=== PATIENT | male | born 1985 | race Caucasian/White ===

== ENCOUNTER 2018-02-08 11:17 | Inpatient (IN) ==
--- NOTE | 2018-02-08 11:31 | Emergency Department Note ---
Disposition Clinical Impression: Acute psychosis, Homicidal ideations Disposition: Admitted As Inpatient Condition: Fair General Adult HPI - General Chief complaint: ED Psychiatric Symptoms Stated complaint: Psych Time Seen by Provider: 02/08/18 11:25 - History of Present Illness Pain Scale: 8 - Related Data Home Medications Medication Instructions Recorded Confirmed Aspirin [Lo-Dose Aspirin EC] 81 mg PO DAILY 02/08/18 02/08/18 Biotin 10,000 mcg PO DAILY 02/08/18 02/08/18 FLUoxetine HCl [PROzac] 20 mg PO DAILY 02/08/18 02/08/18 Glycopyrrolate [Robinul] 2 mg PO BID 02/08/18 02/08/18 Methocarbamol [Robaxin] 500 mg PO Q8HR 02/08/18 02/08/18 hydrOXYzine HCl [Hydroxyzine HCl] 25 mg PO HS 02/08/18 02/08/18 Allergies Allergy/AdvReac Type Severity Reaction Status Date / Time No Known Allergies Allergy Verified 02/08/18 11:24 Past Medical History - Past Medical History Medical history: Reports: no medical history - Social History Smoking Status: Never smoker Smokeless Tobacco Status: No Alcohol use: Reports: none Course Vital Signs Temperature 98.8 F 02/08/18 11:22 Pulse Rate 119 02/08/18 11:22 Respiratory Rate 18 02/08/18 11:22 Blood Pressure 169/95 02/08/18 11:22 O2 Sat by Pulse Oximetry 96 02/08/18 11:22 Temperature 97.8 F 02/08/18 20:24 Pulse Rate 93 02/08/18 20:24 Respiratory Rate 18 02/08/18 20:24 Blood Pressure 164/100 02/08/18 20:24 O2 Sat by Pulse Oximetry 96 02/08/18 11:28 Oxygen Delivery Oxygen Delivery Room Air Medical Decision Making - Lab Data Result diagrams: 02/08/18 11:59 02/08/18 11:59 Lab Results 02/08/18 02/08/18 02/08/18 Range/Units 11:45 11:59 11:59 WBC 12.9 H (4.3-11.1) K/mcL RBC 5.38 (4.19-5.50) M/mcL Hgb 14.2 (12.9-16.9) g/dL Hct 44.2 (37.5-50.1) % MCV 82.2 L (83.0-100.0) fL MCH 26.4 L (28.0-33.3) pg MCHC 32.1 (31.6-35.5) g/dL RDW 14.3 (11.5-14.5) % Plt Count 339 (140-400) K/mcL MPV 11.2 (9.4-12.4) fL Immature Gran % 0.2 (0-4) % Seg Neutrophils % 62.2 % Lymphocytes % 26.0 % Monocytes % 9.9 % Eosinophils % 0.8 % Basophils % 0.9 % Neutrophils # 8.0 (1.6-8.9) K/mcL Lymphocytes # 3.4 (0.6-4.6) K/mcL Monocytes # 1.3 (0.0-1.3) K/mcL Eosinophils # 0.1 (0.0-0.6) K/mcL Basophils # 0.1 (0.0-0.2) K/mcL Sodium 141 (136-145) mEq/L Potassium 3.9 (3.5-5.1) mEq/L Chloride 105 (98-107) mEq/L Carbon Dioxide 27 (23-29) mEq/L BUN 18 (6-20) mg/dL Creatinine 1.14 (0.70-1.30) mg/dL Est GFR ( Amer) > 60 (> 60) Est GFR (Non-Af Amer) > 60 (> 60) BUN/Creatinine Ratio 16 (6-26) Glucose 120 H (70-105) mg/dL Calculated Osmolality 295 (280-300) Calcium 9.9 (8.6-10.3) mg/dL Total Bilirubin 0.4 (0.3-1.0) mg/dL Direct Bilirubin 0.1 (0.0-0.2) mg/dL Indirect Bilirubin 0.3 (0.0-1.2) mg/dL AST 34 (13-39) Units/L ALT 25 (7-52) Units/L Alkaline Phosphatase 113 H (34-104) Units/L Serum Total Protein 7.8 (6.4-8.9) g/dL Albumin 4.8 (3.5-5.7) g/dL Globulin 3.0 (2.4-3.5) g/dL Albumin/Globulin Ratio 1.6 (1.1-2.2) Salicylates < 2.5 L (15.0-30.0) mg/dL Urine Opiates Screen Negative (Ptvvhw=583) ng/mL Acetaminophen < 10 L (10-20) mcg/mL Ur Barbiturates Screen Negative (Vybjxs=251) ng/mL Ur Phencyclidine Scrn Negative (Cutoff=25) ng/mL Ur Amphetamines Screen Negative (Lvgkjw=7357) ng/mL U Benzodiazepines Scrn Positive H (Ozbhaf=777) ng/mL Urine Cocaine Screen Negative (Cutoff= 300) ng/mL U Marijuana (THC) Screen Negative (Cutoff = 50) ng/mL Ur Drug Screen Interp See Below Ethyl Alcohol < 10 (Less than 10) mg/dL Attestation Statement - Attestation Attestation: I examined this patient and my medical decision-making was reviewed with the Resident Physician. I agree with the documented findings, disposition and treatment plan as described except to the extent set forth below. [id number] time provided Patient to ED in care of family with behavioral symptoms. Evaluated in conjunction with Dr. Thorne. Appears mildly anxious on exam. We will attempt cleared medically for behavioral evaluation
--- NOTE | 2018-02-08 11:39 | Emergency Department Note ---
Disposition Clinical Impression: Acute psychosis, Homicidal ideations Disposition: Admitted As Inpatient Condition: Fair Referrals: Alphonso Jimenez [Primary Care Provider] - Forms: ED Satisfaction Letter Psych HPI - General Chief Complaint: ED Psychiatric Symptoms Stated Complaint: Psych Time Seen by Provider: 02/08/18 11:25 Source: patient, family Nursing Notes Reviewed: Yes Vital Signs Reviewed: Yes - History of Present Illness HPI Narrative: 32-year-old male presents emergency Department due to not being himself the last few weeks. states that patient has been really upset. Has been saying things that do not make any sense. Has been very paranoid. States that everyone is out to get him. Reports that he wants to hurt his mom's new . Reports that he has wiring up different technological devices. Denies any suicidal ideations. Has been diagnosed with bipolar syndrome. Has been stating that he has "A trillion dollars in the bank". Denies usses of illicit drugs. Reports that his family as both [place] and . - Related Data Home Medications Medication Instructions Recorded Confirmed Aspirin 05/18/17 Biotin 05/18/17 Hydroxyzine HCl 05/18/17 Latuda 05/18/17 Prozac 05/18/17 Previous Rx's Medication Instructions Recorded Erythromycin OPTH Oint 1 appl RIGHT EYE QID #1 tube 05/18/17 HYDROcodone/Acet 5/325 mg [[place] 1 tab PO Q4H PRN #6 tab 05/18/17 5-325 mg] Allergies Allergy/AdvReac Type Severity Reaction Status Date / Time No Known Allergies Allergy Verified 02/08/18 11:24 All systems ED: reviewed and negative except as stated. Review of Systems: As Per HPI Constitutional: Denies: fever Cardiovascular: Denies: chest pain, palpitations Respiratory: Denies: cough Gastrointestinal: Denies: nausea, vomiting Genitourinary: Denies: urgency, dysuria, frequency Musculoskeletal: Denies: back pain Psychiatric: Reports: anxiety, homicidal thoughts. Denies: depression, suicidal thoughts, auditory hallucinations, visual hallucinations Past Medical History - Past Medical History Medical history: Reports: no medical history Psychiatric history: Reports: anxiety, bipolar, depression, previous psychiatric hospitalization - Social History Smoking Status: Never smoker Smokeless Tobacco Status: No Alcohol use: Reports: none Drug use: Reports: marijuana Physical Exam - General Limitations: no limitations General appearance: alert, anxious - Head Head exam: atraumatic, normocephalic - Eye Eye exam: Present: EOMI - ENT ENT exam: normal oropharynx - Neck Neck exam: Present: trachea midline - Chest Chest inspection: Present: symmetric chest wall rise - Respiratory Respiratory exam: Present: normal lung sounds bilaterally. Absent: respiratory distress - Cardiovascular Cardiovascular exam: Present: regular rate, normal rhythm, normal heart sounds - Abdominal Exam Abdominal exam: Present: soft, Non-Tender. Absent: distention, guarding, rebound - Extremities Exam Extremities exam: Present: full ROM - Back Exam Back exam: Present: full ROM - Neurological Exam Neurological exam: Present: alert, oriented X3 - Psychiatric Psychiatric exam: Present: anxious, homicidal ideation, other (Tangential speech ) - Skin Skin exam: Present: warm, dry, intact Course Vital Signs Temperature 98.8 F 02/08/18 11:22 Pulse Rate 119 02/08/18 11:22 Respiratory Rate 18 02/08/18 11:22 Blood Pressure 169/95 02/08/18 11:22 O2 Sat by Pulse Oximetry 96 02/08/18 11:22 Temperature 98.8 F 02/08/18 11:28 Pulse Rate 119 02/08/18 11:28 Respiratory Rate 18 02/08/18 11:28 Blood Pressure 169/95 02/08/18 11:28 O2 Sat by Pulse Oximetry 96 02/08/18 11:28 Oxygen Delivery Oxygen Delivery Room Air Psych - MDM Narrative Medical decision making narrative: 32-year-old male presents emergency Department with reportedly being different of last 3 weeks. Stated as homicidal ideations. Denies suicidal ideations. Appears very anxious on physical exam. Has tangential speech. Patient has been pink slip. We are currently completing medical clearance prior to evaluation by [facility]. Patient is currently hemodynamically stable. Patient has normal CBC. BMP is normal as well. Salicylates and Tylenol levels are negative. Patient does not have any elevated level of EtOH. Urine drug screen only positive for benzodiazepines. I spoke with the psychiatry team and they will come down to evaluate patient. [facility] has evaluated the patient. They agreed to accept. Patient will be admitted to the hospital. Vital Signs Temperature 98.8 F 02/08/18 11:22 Pulse Rate 119 02/08/18 11:22 Respiratory Rate 18 02/08/18 11:22 Blood Pressure 169/95 02/08/18 11:22 O2 Sat by Pulse Oximetry 96 02/08/18 11:22 Temperature 98.8 F 02/08/18 11:28 Pulse Rate 119 02/08/18 11:28 Respiratory Rate 18 02/08/18 11:28 Blood Pressure 169/95 02/08/18 11:28 O2 Sat by Pulse Oximetry 96 02/08/18 11:28 Oxygen Delivery Oxygen Delivery Room Air - Lab Data Result diagrams: 02/08/18 11:59 02/08/18 11:59 Lab Results 02/08/18 02/08/18 02/08/18 Range/Units 11:45 11:59 11:59 WBC 12.9 H (4.3-11.1) K/mcL RBC 5.38 (4.19-5.50) M/mcL Hgb 14.2 (12.9-16.9) g/dL Hct 44.2 (37.5-50.1) % MCV 82.2 L (83.0-100.0) fL MCH 26.4 L (28.0-33.3) pg MCHC 32.1 (31.6-35.5) g/dL RDW 14.3 (11.5-14.5) % Plt Count 339 (140-400) K/mcL MPV 11.2 (9.4-12.4) fL Immature Gran % 0.2 (0-4) % Seg Neutrophils % 62.2 % Lymphocytes % 26.0 % Monocytes % 9.9 % Eosinophils % 0.8 % Basophils % 0.9 % Neutrophils # 8.0 (1.6-8.9) K/mcL Lymphocytes # 3.4 (0.6-4.6) K/mcL Monocytes # 1.3 (0.0-1.3) K/mcL Eosinophils # 0.1 (0.0-0.6) K/mcL Basophils # 0.1 (0.0-0.2) K/mcL Sodium 141 (136-145) mEq/L Potassium 3.9 (3.5-5.1) mEq/L Chloride 105 (98-107) mEq/L Carbon Dioxide 27 (23-29) mEq/L BUN 18 (6-20) mg/dL Creatinine 1.14 (0.70-1.30) mg/dL Est GFR ( Amer) > 60 (> 60) Est GFR (Non-Af Amer) > 60 (> 60) BUN/Creatinine Ratio 16 (6-26) Glucose 120 H (70-105) mg/dL Calculated Osmolality 295 (280-300) Calcium 9.9 (8.6-10.3) mg/dL Total Bilirubin 0.4 (0.3-1.0) mg/dL Direct Bilirubin 0.1 (0.0-0.2) mg/dL Indirect Bilirubin 0.3 (0.0-1.2) mg/dL AST 34 (13-39) Units/L ALT 25 (7-52) Units/L Alkaline Phosphatase 113 H (34-104) Units/L Serum Total Protein 7.8 (6.4-8.9) g/dL Albumin 4.8 (3.5-5.7) g/dL Globulin 3.0 (2.4-3.5) g/dL Albumin/Globulin Ratio 1.6 (1.1-2.2) Salicylates < 2.5 L (15.0-30.0) mg/dL Urine Opiates Screen Negative (Rieyqu=087) ng/mL Acetaminophen < 10 L (10-20) mcg/mL Ur Barbiturates Screen Negative (Wbpsme=278) ng/mL Ur Phencyclidine Scrn Negative (Cutoff=25) ng/mL Ur Amphetamines Screen Negative (Muxcpn=1227) ng/mL U Benzodiazepines Scrn Positive H (Nkyjdo=110) ng/mL Urine Cocaine Screen Negative (Cutoff= 300) ng/mL U Marijuana (THC) Screen Negative (Cutoff = 50) ng/mL Ur Drug Screen Interp See Below Ethyl Alcohol < 10 (Less than 10) mg/dL Psychiatric Medical Clearance - Medical Clearance Checklist Medical History: No Social History Section defined Current Vitals: Last Vital Signs Temp 98.8 F 02/08/18 11:28 Pulse 119 02/08/18 11:28 Resp 18 02/08/18 11:28 BP 169/95 02/08/18 11:28 Pulse Ox 96 02/08/18 11:28 Psychiatric Lab Panel: Drug Levels and Toxicity 02/08/18 02/08/18 11:45 11:59 Urine Opiates Screen Negative Acetaminophen < 10 L Ur Barbiturates Screen Negative Ur Phencyclidine Scrn Negative Ur Amphetamines Screen Negative U Benzodiazepines Scrn Positive H Urine Cocaine Screen Negative U Marijuana (THC) Screen Negative Ethyl Alcohol < 10 Abnormal Labs: Abnormal lab results WBC 12.9 K/mcL (4.3-11.1) H 02/08/18 11:59 MCV 82.2 fL (83.0-100.0) L 02/08/18 11:59 MCH 26.4 pg (28.0-33.3) L 02/08/18 11:59 Glucose 120 mg/dL (70-105) H 02/08/18 11:59 Alkaline Phosphatase 113 Units/L (34-104) H 02/08/18 11:59 Salicylates < 2.5 mg/dL (15.0-30.0) L 02/08/18 11:59 Acetaminophen < 10 mcg/mL (10-20) L 02/08/18 11:59 U Benzodiazepines Scrn Positive ng/mL (Ciebsd=956) H 02/08/18 11:45 Statement of Medical Clearance: I have evaluated the patient, reviewed diagnostic information, and certify that the patient's medical condition is sufficiently stable that transfer to the psychiatric unit does not pose a significant risk of deterioration.
[2018-02-08 12:18] LABS: Basophils # 0.1 K/mcL (0.0-0.2); Basophils % 0.9 %; Eosinophils # 0.1 K/mcL (0.0-0.6); Eosinophils % 0.8 %; Hematocrit 44.2 % (37.5-50.1); Hemoglobin 14.2 g/dL (12.9-16.9); Immature Granulocytes % 0.2 % (0-4); Lymphocytes # 3.4 K/mcL (0.6-4.6); Mean Corpuscular HGB Conc 32.1 g/dL (31.6-35.5); Mean Corpuscular Hemoglobin 26.4 pg (28.0-33.3); Mean Corpuscular Volume 82.2 fL (83.0-100.0); Mean Platelet Volume 11.2 fL (9.4-12.4); Monocytes # 1.3 K/mcL (0.0-1.3); Monocytes % 9.9 %; Platelet Count 339 K/mcL (140-400); Red Blood Count 5.38 M/mcL (4.19-5.50); Red Cell Distribution Width 14.3 % (11.5-14.5); Segmented Neutrophils % 62.2 %
[2018-02-08 12:55] LABS: Acetaminophen < 10 mcg/mL (10-20); Alanine Aminotransferase 25 Units/L (7-52); Albumin 4.8 g/dL (3.5-5.7); Albumin/Globulin Ratio 1.6 (1.1-2.2); Alkaline Phosphatase 113 Units/L (34-104); Aspartate Amino Transferase 34 Units/L (13-39); BUN/Creatinine Ratio 16 (6-26); Bilirubin,Direct 0.1 mg/dL (0.0-0.2); Bilirubin,Indirect 0.3 mg/dL (0.0-1.2); Bilirubin,Total 0.4 mg/dL (0.3-1.0); Blood Urea Nitrogen 18 mg/dL (6-20); Calcium 9.9 mg/dL (8.6-10.3); Carbon Dioxide 27 mEq/L (23-29); Chloride 105 mEq/L (98-107); Ethanol < 10 mg/dL (Less than 10); Glucose 120 mg/dL (70-105); Osmolality,Calculated 295 (280-300); Potassium 3.9 mEq/L (3.5-5.1); Salicylate < 2.5 mg/dL (15.0-30.0); Sodium 141 mEq/L (136-145); Total Protein 7.8 g/dL (6.4-8.9); eGFR For African Americans > 60 (> 60); eGFR For Non-African Americans > 60 (> 60)
[2018-02-08 13:59] LABS: Amphetamine Screen,Urine Negative ng/mL (Cutoff=1000); Barbiturate Screen,Urine Negative ng/mL (Cutoff=200); Benzodiazepines Screen,Urine Positive ng/mL (Cutoff=200); Cannabinoid Screen,Urine Negative ng/mL (Cutoff = 50); Cocaine Screen,Urine Negative ng/mL (Cutoff= 300); Opiate Screen,Urine Negative ng/mL (Cutoff=300); Phencyclidine Screen,Urine Negative ng/mL (Cutoff=25)
[2018-02-08] MEDS ORDERED: traZODone 50 MG TABLET PO PRN (18:45)
[2018-02-08] MEDS ORDERED: *HR* LORazepam 2 MG/ML VIAL IM PRN (18:45)
[2018-02-08] MEDS ORDERED: hydrOXYzine pamoate 25 MG CAPSULE PO PRN (18:45)
[2018-02-08] MEDS ORDERED: Haloperidol Lactate 5 MG/ML VIAL IM PRN (18:45)
[2018-02-08] MEDS ORDERED: MOM Conc 10 ML UD.LIQ PO PRN (18:45)
[2018-02-08] MEDS ORDERED: *HR* LORazepam 1 MG TABLET PO PRN (18:45)
[2018-02-08] MEDS ORDERED: cloNIDine HCl 0.1 MG TABLET PO ONE (18:59)
[2018-02-08] MEDS ORDERED: OLANZapine 5 MG TAB.RAPDIS PO SCH (21:00)
[2018-02-08] MEDS: Glycopyrrolate 1 MG TABLET PO SCH (22:57)
[2018-02-08] MEDS: hydrOXYzine pamoate 25 MG CAPSULE PO SCH (23:05)
[2018-02-09] MEDS: Methocarbamol 500 MG TABLET PO SCH ×3 (00:37→17:51)
[2018-02-09] MEDS: FLUoxetine 20 MG CAPSULE PO SCH (08:51)
[2018-02-09] MEDS: Aspirin Enteric Coated 81 MG Tablet PO SCH (08:52)
[2018-02-09] MEDS: Glycopyrrolate 1 MG TABLET PO SCH ×2 (08:52→21:44)
--- NOTE | 2018-02-09 11:46 | Psychiatry History & Physical ---
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 MD Medicare Admission Attestation: For traditional Medicare patients the provided hospital inpatient services are reasonable and necessary and in the case of services not specified as inpatient -only under 42 CFR 419.22 (n), that they are appropriately provided as inpatient services in accordance 42 CFR 412.3. For Critical Access Hospital the patient may reasonably be expected to be discharged or transferred to a hospital within 96 hours after admission to the Critical Access Hospital. Admitted From: Emergency Dept Plans for Post Hospital Care: Home History of Present Illness: Mr. Kang is a 32 year old male TJ is a 32-year-old engaged white male who presented with homicidal ideation. He had a specific plan to harm a known person. Chief complaint: I want "Adán Velasquez" off the forearm. He has been spying on S4 24 months. History of present illness. This patient has been diagnosed with bipolar disorder. While we do not have the ells us that he went to [facility] and to [facility] in 2016 and 2017 in those hospitalizations he was diagnosed with bipolar disorder or bipolar depression. He was placed on list to do. The patient has care source insurance but if he makes too much money he loses the insurance. Latuda last $1300 per month. Several years ago the patient's mother started dating a man known as Adán Velasquez. The patient says that this man is trying to take over the forearm in [facility]. Currently the farm is arana rented. 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 The patient made threats to this person and may have a history of violence. The patient was arrested and placed in intermediate or nursing home for 10 months for grand theft charge also for resisting arrest. We have not been able to talk to his girlfriend or fiance Doris Slater. But she did present to the emergency room and gave additional history. The patient does not have significant drug or alcohol use. Stopped taking Latuda because of cost sometime in 2017 or 2018 he was told to follow up after being started on the medicine but said that he get busy on the farm and did not. It is unclear when his unusual beliefs began this includes that he sternum and an that he can hear his grandfather's talking to the ground that there is monitoring going on and that Adán Velasquez is taking on other forms as a disguise. The patient can hear his name and references through TV and radio he reports thought broadcasting ideas of reference and thought withdrawal. The patient also identifies himself as being informed from 2 spirits and that he has special castillo and abilities of the people who have. The patient meets the criteria for take fast Patient has a court hearing on for child support in [facility]. The patient has a court hearing April 23 for child support in [facility] Past medical history surgeries hernia right inguinal. Several minor surgeries on fingers. Illnesses the patient denies a history of hypertension. He says his blood pressure gets elevated when he comes into the hospital. The patient is overweight and says that he lost about 40 pounds. Allergies NKDA. The patient is on Prozac as one of his medicines so that helps him with energy his primary care physician is Alphonso Jimenez he also takes glycopyrrolate for hyperhidrosis. Family history. The patient reports that roxy Lopez is maternal grandfather when on bedrest for 8 years and that roxy Dash his paternal grandfather farm for many years. A cousin on his mother's side may have had a mental health problem and a maternal grandmother may be on Zyprexa or Seroquel or another medicine there is no family history of suicide drug abuse or alcohol abuse Social history the patient was raised in [facility]. Has been one time he has had 2 children out of wedlock and he has 3 biological kids and 3 step kids he is not sure about a fourth child. The patient is planning on getting but has no set appointment. The patient lives in [place]. He uses occasional alcohol. 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 Review of systems is significant for a leg injury he says the tibia feels like it is broken but he is up walking around. He was says it was injured when he was taken off to the [facility]. The patient served in the [employer] to a [employer] to the [employer] but was never sent overseas. The patient meets criteria for bipolar disorder manic although the course of the illness is difficult to determine the onset is about age 30 Past Med Surg Social Fam HX - Past Medical History Source: patient Medical history: no medical history - Past Psychiatric History Psychiatric history: Reports: bipolar, previous psychiatric hospitalization Family psychiatric history: Yes Family History of Suicide: None - Past Surgical History Surgical History: no surgical history - Social History Smoking Status: Never smoker Smokeless Tobacco Status: No Alcohol use: none Drug use: marijuana Occupational status: employed Current living situation: Home - Independent Activity Level: Independent ambulation Recent Out of Country Travel Within the Last 8 Weeks: No Exposure or Possible Exposure to Illness During Travel: No Medications & Allergies Aspirin [Lo-Dose Aspirin EC] 81 mg PO DAILY 02/08/18 [History] Biotin 10,000 mcg PO DAILY 02/08/18 [History] FLUoxetine HCl [PROzac] 20 mg PO DAILY 02/08/18 [History] Glycopyrrolate [Robinul] 2 mg PO BID 02/08/18 [History] Methocarbamol [Robaxin] 500 mg PO Q8HR 02/08/18 [History] hydrOXYzine HCl [Hydroxyzine HCl] 25 mg PO HS 02/08/18 [History] 3 Allergy/AdvReac Type Severity Reaction Status Date / Time No Known Allergies Allergy Verified 02/08/18 11:24 Review of Systems Constitutional: Reports: weight change, night sweats Eyes: Denies: eye pain, vision change Ears, Nose, Throat: Denies: ear pain, throat pain, dental pain, hearing loss, congestion Cardiovascular: Denies: chest pain, palpitations, dyspnea on exertion Respiratory: Denies: cough, dyspnea, wheezes Gastrointestinal: Denies: abdominal pain, nausea, vomiting, diarrhea, constipation Genitourinary male: Denies: urgency, dysuria, frequency, genital lesions Musculoskeletal: Reports: back pain Integumentary: Reports: other Neurological: Denies: headache, weakness, numbness, memory loss Psychiatric: Reports: abnormal sleep pattern, homicidal ideation Endocrine: Denies: fatigue, heat or cold intolerance Hematologic/Lymphatic: Denies: easy bruising, lymphadenopathy Allergic/Immunologic: Denies: urticaria, itchy eyes Exam - HEENT Head exam IM: Present: atraumatic Eye exam IM: Present: EOMI, normal appearance, PERRL ENT exam IM: Present: normal exam - Neurological Neurological exam: Present: CN II-XII intact - Respiratory Respiratory exam IM: Present: CTAB - GI/Abdominal GI/Abdominal exam IM: Present: normal bowel sounds, soft. Absent: tenderness - Extremities Extremities exam IM: Present: full ROM - Skin Skin exam IM: Present: dry, warm - Constitutional Vitals: Temp Pulse Resp BP Pulse Ox 97.6 F 65 18 145/86 96 02/09/18 09:00 02/09/18 09:00 02/09/18 09:00 02/09/18 09:00 02/08/18 11:28 General appearance: age & developmentally appropriate, well-groomed, well- nourished - Musculoskeletal Gait: normal Station: relaxed Strength & Tone: normal for patient - Psychiatric Patient Orientation: Yes Person, Yes Time, Yes Place Level of alertness: Alert Behavior: calm, cooperative Psychomotor activity: Normal Eye Contact: Maintains Eye Contact Mood Description: Expansive Affect description: congruent with mood, euphoric Speech Volume: Normal Speech pattern: normal rate, normal rhythm, normal tone, fluent, spontaneous Language & Vocabulary: consistent with education Thought Process: Linear, Goal Oriented Thought Content: No Suicidal ideation, Yes Homicidal ideation, No Overt delusions, Yes Ideas of reference, Yes Thought broadcasting, Yes Thought insertion Perceptual Disturbances: Yes Auditory hallucinations, No Visual hallucinations Attention Span Ability: Capable of Focused Attention, Capable of Sustained Attention Memory Description: Grossly Intact Patient Reliability: Questionable Historian Fund of knowledge: Yes abstraction ability, Yes average, Yes aware of current events Intelligence Estimate: Average Judgment: Limited Insight: Minimal Results - Labs Labs: Laboratory Last Values WBC 12.9 K/mcL (4.3-11.1) H 02/08/18 11:59 RBC 5.38 M/mcL (4.19-5.50) 02/08/18 11:59 Hgb 14.2 g/dL (12.9-16.9) 02/08/18 11:59 Hct 44.2 % (37.5-50.1) 02/08/18 11:59 MCV 82.2 fL (83.0-100.0) L 02/08/18 11:59 MCH 26.4 pg (28.0-33.3) L 02/08/18 11:59 MCHC 32.1 g/dL (31.6-35.5) 02/08/18 11:59 RDW 14.3 % (11.5-14.5) 02/08/18 11:59 Plt Count 339 K/mcL (140-400) 02/08/18 11:59 MPV 11.2 fL (9.4-12.4) 02/08/18 11:59 Immature Gran % 0.2 % (0-4) 02/08/18 11:59 Seg Neutrophils % 62.2 % 02/08/18 11:59 Lymphocytes % 26.0 % 02/08/18 11:59 Monocytes % 9.9 % 02/08/18 11:59 Eosinophils % 0.8 % 02/08/18 11:59 Basophils % 0.9 % 02/08/18 11:59 Neutrophils # 8.0 K/mcL (1.6-8.9) 02/08/18 11:59 Lymphocytes # 3.4 K/mcL (0.6-4.6) 02/08/18 11:59 Monocytes # 1.3 K/mcL (0.0-1.3) 02/08/18 11:59 Eosinophils # 0.1 K/mcL (0.0-0.6) 02/08/18 11:59 Basophils # 0.1 K/mcL (0.0-0.2) 02/08/18 11:59 Sodium 141 mEq/L (136-145) 02/08/18 11:59 Potassium 3.9 mEq/L (3.5-5.1) 02/08/18 11:59 Chloride 105 mEq/L (98-107) 02/08/18 11:59 Carbon Dioxide 27 mEq/L (23-29) 02/08/18 11:59 BUN 18 mg/dL (6-20) 02/08/18 11:59 Creatinine 1.14 mg/dL (0.70-1.30) 02/08/18 11:59 Est GFR ( Amer) > 60 (> 60) 02/08/18 11:59 Est GFR (Non-Af Amer) > 60 (> 60) 02/08/18 11:59 BUN/Creatinine Ratio 16 (6-26) 02/08/18 11:59 Glucose 120 mg/dL (70-105) H 02/08/18 11:59 Calculated Osmolality 295 (280-300) 02/08/18 11:59 Calcium 9.9 mg/dL (8.6-10.3) 02/08/18 11:59 Total Bilirubin 0.4 mg/dL (0.3-1.0) 02/08/18 11:59 Direct Bilirubin 0.1 mg/dL (0.0-0.2) 02/08/18 11:59 Indirect Bilirubin 0.3 mg/dL (0.0-1.2) 02/08/18 11:59 AST 34 Units/L (13-39) 02/08/18 11:59 ALT 25 Units/L (7-52) 02/08/18 11:59 Alkaline Phosphatase 113 Units/L (34-104) H 02/08/18 11:59 Serum Total Protein 7.8 g/dL (6.4-8.9) 02/08/18 11:59 Albumin 4.8 g/dL (3.5-5.7) 02/08/18 11:59 Globulin 3.0 g/dL (2.4-3.5) 02/08/18 11:59 Albumin/Globulin Ratio 1.6 (1.1-2.2) 02/08/18 11:59 Salicylates < 2.5 mg/dL (15.0-30.0) L 02/08/18 11:59 Urine Opiates Screen Negative ng/mL (Jwdtjx=518) 02/08/18 11:45 Acetaminophen < 10 mcg/mL (10-20) L 02/08/18 11:59 Ur Barbiturates Screen Negative ng/mL (Vedhha=751) 02/08/18 11:45 Ur Phencyclidine Scrn Negative ng/mL (Cutoff=25) 02/08/18 11:45 Ur Amphetamines Screen Negative ng/mL (Axpoio=0545) 02/08/18 11:45 U Benzodiazepines Scrn Positive ng/mL (Ihsmke=213) H 02/08/18 11:45 Urine Cocaine Screen Negative ng/mL (Cutoff= 300) 02/08/18 11:45 U Marijuana (THC) Screen Negative ng/mL (Cutoff = 50) 02/08/18 11:45 Ur Drug Screen Interp See Below 02/08/18 11:45 Ethyl Alcohol < 10 mg/dL (Less than 10) 02/08/18 11:59 Assessment and Plan (1) Bipolar disorder, current episode manic severe with psychotic features Current visit: Yes Status: Acute Plan: Admit inpatient for safety and stabilization, Close observation, Suicide Precautions per unit protocol, Encourage participation in unit milieu, Secure weapons Risks, benefits, side effects, alternatives discussed w/pt: Yes Patient agreeable to treatment: Yes Plans for Post Hospital Care: Home Estimated Length of Stay (Days): 7 (2) Homicidal ideations Current visit: Yes Status: Acute Plan: Admit inpatient for safety and stabilization, Close observation, Suicide Precautions per unit protocol, Encourage participation in unit milieu, Secure weapons Risks, benefits, side effects, alternatives discussed w/pt: Yes Patient agreeable to treatment: Yes Plans for Post Hospital Care: Home
[2018-02-09] MEDS: cloNIDine HCl 0.1 MG TABLET PO SCH (17:50)
[2018-02-09] MEDS ORDERED: OLANZapine 10 MG TAB.RAPDIS PO SCH (21:00)
[2018-02-09] MEDS: hydrOXYzine pamoate 25 MG CAPSULE PO SCH (21:44)
[2018-02-10] MEDS: Methocarbamol 500 MG TABLET PO SCH ×3 (00:20→17:19)
[2018-02-10] MEDS: FLUoxetine 20 MG CAPSULE PO SCH (08:34)
[2018-02-10] MEDS: Aspirin Enteric Coated 81 MG Tablet PO SCH (08:34)
[2018-02-10] MEDS: Glycopyrrolate 1 MG TABLET PO SCH ×2 (08:34→21:46)
--- NOTE | 2018-02-10 11:41 | Psychiatry Progress Note ---
Date of Encounter: 02/10/18 Time of Encounter: 10:30 Subjective Interval history: ID: 32 yo W male Chief complaint I want be discharged Thursday because a one ago boating on Thursday. History of present illness. The patient continues to have thoughts to harm the other person. He has talked about how he might use the castle defense in an effort to shoot him. The patient does recognize her legal means to removing this gentleman from the farm. Nonetheless the patient is concerned about this. The patient's history and additional history were collected. Lip to do did not work and this may be because he had manic episodes while on what to do. Prozac and Paxil were not well tolerated and the patient is willing to discontinue the Prozac so long as he has good energy. Abilify was associated with movements of the mouth. The patient took Depakote and tolerated it but did not stay on it did not get the blood work done. He was also told me that he was on lithium but he did not want to remain him for blood work. The patient was concerned about weight gain with Depakote and Zyprexa. He was told to continue his efforts to reduce caloric intake and increase exercise. Specifically we talked about reducing carbohydrates. The patient requested Neosporin for some lesions on the back of the ankle. He also requested his biotin. The patient was told that she would need to sign in as a voluntary patient in order to stay on the unit and he agreed. Review of Systems Integumentary: Reports: lesions Psychiatric: Reports: abnormal sleep pattern, homicidal ideation Results - Vital Signs Vital Signs: Temp Pulse Resp BP Pulse Ox 98 F 71 20 116/89 96 02/10/18 09:00 02/10/18 09:00 02/10/18 09:00 02/10/18 09:00 02/08/18 11:28 Assessment and Plan (1) Bipolar disorder, current episode manic severe with psychotic features Current visit: Yes Status: Acute Plan: Continue hospitalization, Close observation, Suicide Precautions per unit protocol, Group Therapy, Monitor sleep, Monitor appetite Risks, benefits, side effects, alternatives discussed w/pt: Yes Patient agreeable to treatment : Yes (2) Homicidal ideations Current visit: Yes Status: Acute Plan: Monitor sleep, Monitor appetite, Secure weapons, Family/Supportive other meeting Risks, benefits, side effects, alternatives discussed w/pt: Yes Patient agreeable to treatment: Yes Consult Discharge Plan - Plan Referrals: [facility]ul[facility] [Outside] - 02/19/18 10:00 am (The above appointment is with Jo Ann for mental health counseling. Please bring completed [facility] intake packet that you received at the hospital with you. Please also bring photo ID, insurance card, proof of income and proof of residency. Arrive at 0930 for paperwork. Jo Ann will refer you to see the psychiatric prescriber.) Psychiatry Exam - Constitutional Vitals: Temp Pulse Resp BP Pulse Ox 98 F 71 20 116/89 96 02/10/18 09:00 02/10/18 09:00 02/10/18 09:00 02/10/18 09:00 02/08/18 11:28 General appearance: age & developmentally appropriate, well-groomed, obese - Musculoskeletal Gait: normal Station: erect Strength & Tone: normal for patient - Psychiatric Patient Orientation: Yes Person, Yes Time, Yes Place, Yes Circumstance Level of alertness: Alert Behavior: distractible, impulsive, talkative Psychomotor activity: Normal Eye Contact: Maintains Eye Contact Mood Description: Euphoric, Expansive Affect description: euphoric, inappropriate to situation Speech Volume: Normal Speech pattern: inappropriate to situation, rambling, excessive Language & Vocabulary: consistent with education Thought Process: Tangential, Flight of Ideas Thought Content: Yes Homicidal ideation, Yes Overt delusions, Yes Ideas of reference Perceptual Disturbances: Yes Auditory hallucinations Attention Span Ability: Capable of Sustained Attention Memory Description: Grossly Intact Patient Reliability: Questionable Historian Fund of knowledge: Yes average Intelligence Estimate: Average Judgment: Limited Insight: Minimal
[2018-02-10] MEDS: Ibuprofen 400 MG TABLET PO PRN (14:22)
[2018-02-10] MEDS: Neosporin OINT 15 GM TUBE TP SCH ×2 (14:23→22:12)
[2018-02-10] MEDS: cloNIDine HCl 0.1 MG TABLET PO SCH (17:19)
[2018-02-10] MEDS: Divalproex (24 HR) 500 MG TABLET PO SCH (21:45)
[2018-02-10] MEDS: hydrOXYzine pamoate 25 MG CAPSULE PO SCH (21:46)
[2018-02-10] MEDS: OLANZapine 10 MG TAB.RAPDIS PO SCH (21:46)
[2018-02-11] MEDS: Methocarbamol 500 MG TABLET PO SCH ×3 (00:56→17:01)
[2018-02-11] MEDS: Glycopyrrolate 1 MG TABLET PO SCH ×2 (08:27→20:37)
[2018-02-11] MEDS: Aspirin Enteric Coated 81 MG Tablet PO SCH (08:27)
[2018-02-11] MEDS: Divalproex (24 HR) 500 MG TABLET PO SCH ×2 (08:28→20:41)
[2018-02-11] MEDS: Neosporin OINT 15 GM TUBE TP SCH ×2 (10:00→21:57)
--- NOTE | 2018-02-11 11:25 | Psychiatry Progress Note ---
Date of Encounter: 02/11/18 Time of Encounter: 11:15 Subjective Interval history: ID: 32 yo male CC: My fiance called the autopsy assistant, but she said that I am doing better. HPI: patient has been able to sleep. he has been thinking about this man, still has HI. He will have fasting blood work, in the AM. He has been able to talk with is father. He has some big ideas, like he owns [employer] and he has trilllion dollars. He wants to consider the [employer] defense in [place]. Review of Systems Psychiatric: Reports: abnormal sleep pattern, change in appetite, homicidal ideation Results - Vital Signs Vital Signs: Temp Pulse Resp BP Pulse Ox 97.8 F 91 16 143/78 96 02/11/18 09:00 02/11/18 09:00 02/11/18 09:00 02/11/18 09:00 02/08/18 11:28 Assessment and Plan (1) Bipolar disorder, current episode manic severe with psychotic features Current visit: Yes Status: Acute Plan: Continue hospitalization, Close observation, Suicide Precautions per unit protocol, Group Therapy, Monitor sleep, Monitor appetite Risks, benefits, side effects, alternatives discussed w/pt: Yes Patient agreeable to treatment : Yes (2) Homicidal ideations Current visit: Yes Status: Acute Plan: Group Therapy, Secure weapons Risks, benefits, side effects, alternatives discussed w/pt: Yes Patient agreeable to treatment: Yes Consult Discharge Plan - Plan Referrals: [facility] [Outside] - 02/24/18 8:45 am (The above appointment is with Dr. Jimenez for primary care and medications. Please bring photo ID and insurance card. ) [facility] [Outside] - 02/19/18 10:00 am (The above appointment is with Jo Ann for mental health counseling. Please bring completed [facility] intake packet that you received at the hospital with you. Please also bring photo ID, insurance card, proof of income and proof of residency. Arrive at 0930 for paperwork. Jo Ann will refer you to see the psychiatric prescriber.) Psychiatry Exam - Constitutional Vitals: Temp Pulse Resp BP Pulse Ox 97.8 F 91 16 143/78 96 02/11/18 09:00 02/11/18 09:00 02/11/18 09:00 02/11/18 09:00 02/08/18 11:28 General appearance: age & developmentally appropriate, obese - Musculoskeletal Gait: normal Station: other Strength & Tone: normal for patient - Psychiatric Patient Orientation: Yes Person, Yes Time, Yes Place Level of alertness: Alert Behavior: calm, impulsive Psychomotor activity: Normal Eye Contact: Maintains Eye Contact Mood Description: Elevated, Euphoric Affect description: congruent with mood Speech Volume: Normal Speech pattern: excessive Language & Vocabulary: consistent with education Thought Process: Intact Thought Content: Yes Homicidal ideation, Yes Grandiose delusion Perceptual Disturbances: Yes Auditory hallucinations Attention Span Ability: Capable of Sustained Attention Memory Description: Grossly Intact Patient Reliability: Questionable Historian Intelligence Estimate: Average Judgment: Limited Insight: Minimal
[2018-02-11] MEDS: cloNIDine HCl 0.1 MG TABLET PO SCH (17:01)
[2018-02-11] MEDS: hydrOXYzine pamoate 25 MG CAPSULE PO SCH (20:37)
[2018-02-11] MEDS: OLANZapine 10 MG TAB.RAPDIS PO SCH (20:38)
[2018-02-11] MEDS: Ibuprofen 400 MG TABLET PO PRN (21:20)
[2018-02-11] MEDS: Mag Hydrox/Al Hydrox/Simeth 30 ML UDC PO PRN (21:56)
[2018-02-12] MEDS: Methocarbamol 500 MG TABLET PO SCH ×3 (00:09→15:16)
[2018-02-12] MEDS: Glycopyrrolate 1 MG TABLET PO SCH ×2 (08:10→20:40)
[2018-02-12] MEDS: Aspirin Enteric Coated 81 MG Tablet PO SCH (08:10)
[2018-02-12] MEDS: Divalproex (24 HR) 500 MG TABLET PO SCH (08:11)
[2018-02-12] MEDS: Neosporin OINT 15 GM TUBE TP SCH (08:12)
[2018-02-12 08:28] LABS: Estimated Average Glucose 114 mg/dl; Hemoglobin A1C 5.6 %
[2018-02-12 08:31] LABS: Basophils # 0.1 K/mcL (0.0-0.2); Basophils % 1.1 %; Eosinophils # 0.5 K/mcL (0.0-0.6); Eosinophils % 6.4 %; Hematocrit 43.1 % (37.5-50.1); Hemoglobin 13.4 g/dL (12.9-16.9); Immature Granulocytes % 0.5 % (0-4); Lymphocytes # 2.5 K/mcL (0.6-4.6); Lymphocytes % 30.6 %; Mean Corpuscular HGB Conc 31.1 g/dL (31.6-35.5); Mean Corpuscular Hemoglobin 26.1 pg (28.0-33.3); Mean Platelet Volume 11.5 fL (9.4-12.4); Monocytes # 0.7 K/mcL (0.0-1.3); Neutrophils # 4.2 K/mcL (1.6-8.9); Platelet Count 286 K/mcL (140-400); Red Blood Count 5.13 M/mcL (4.19-5.50); Red Cell Distribution Width 14.3 % (11.5-14.5); Segmented Neutrophils % 52.4 %
[2018-02-12 08:59] LABS: Albumin 3.9 g/dL (3.5-5.7); Albumin/Globulin Ratio 1.4 (1.1-2.2); Bilirubin,Direct 0.1 mg/dL (0.0-0.2); Bilirubin,Indirect 0.2 mg/dL (0.0-1.2); Bilirubin,Total 0.3 mg/dL (0.3-1.0); Globulin 2.7 g/dL (2.4-3.5); Total Protein 6.6 g/dL (6.4-8.9)
--- NOTE | 2018-02-12 11:26 | Psychiatry Progress Note ---
Date of Encounter: 02/12/18 Time of Encounter: 11:00 Subjective Interval history: The patient is a 32-year-old white male. He returns for follow-up. He has been on the inpatient unit. The patient did sleep 7 hours last night he did express homicidal ideation. Chief complaint I might have to stay in my ground. History of present illness. The patient has continued to be grandiose jocular inappropriate although he is showing a little bit more self-control. He is less likely to talk about efforts to kill this identified person on the unit. Yesterday the patient developed increased swelling in her legs. This is been checked and is in nonpitting type of edema its limited to the lower extremities and it is not exactly an ankle edema. It is not seen in the upper extremities he has no other symptoms such as shortness of breath. The patient's been taking Depakote The patient's labs were reviewed and the good news is that his blood sugar is essentially within normal limits and his hemoglobin A1c is 5.6 the bad news is that his valproic acid is 32. This is after several doses and the patient will stay to reduce dose. The onset of the edema seems to follow the Depakote although olanzapine can cause it to. Patient says that he talked to his girlfriend for an hour last night her variety of discussions about how to get back to work how it K of his tractor and discussions of what he might build in the bedroom. She told him to stop talking so much about sex. The patient is previously been on lithium and he agrees to begin a trial of this he does not like needles. The patient has wanted to get out of the hospital but is able to agree that laboratory studies need to be drawn. I will enter these for Thursday so that I can review them. Patient was advised to have his feet above the level of his heart for about 15 minutes 4 times a day. He was advised about the side effects of Lasix which will be used to initially treat the swelling. He remains a voluntary patient at this time Review of Systems Psychiatric: Reports: abnormal sleep pattern, change in appetite, homicidal ideation Results - Vital Signs Vital Signs: Temp Pulse Resp BP Pulse Ox 98.1 F 73 21 143/78 96 02/12/18 08:17 02/12/18 08:17 02/12/18 08:02/12/18 08:02/08/18 11:28 - Labs Labs: Laboratory Results - last 24 hr 02/12/18 02/12/18 02/12/18 07:55 07:55 07:55 WBC 8.1 RBC 5.13 Hgb 13.4 Hct 43.1 MCV 84.0 MCH 26.1 L MCHC 31.1 L RDW 14.3 Plt Count 286 MPV 11.5 Immature Gran % 0.5 Seg Neutrophils % 52.4 Lymphocytes % 30.6 Monocytes % 9.0 Eosinophils % 6.4 Basophils % 1.1 Neutrophils # 4.2 Lymphocytes # 2.5 Monocytes # 0.7 Eosinophils # 0.5 Basophils # 0.1 Glucose 84 Est Mean Plasma Glucose 114 Hemoglobin A1c 5.6 Total Bilirubin 0.3 Direct Bilirubin 0.1 Indirect Bilirubin 0.2 AST 25 ALT 20 Alkaline Phosphatase 96 Serum Total Protein 6.6 Albumin 3.9 Globulin 2.7 Albumin/Globulin Ratio 1.4 Valproic Acid 32 L Assessment and Plan (1) Bipolar disorder, current episode manic severe with psychotic features Current visit: Yes Status: Acute Plan: Continue hospitalization, Encourage participation in unit milieu, Secure weapons, Family/Supportive other meeting Risks, benefits, side effects, alternatives discussed w/pt: Yes Patient agreeable to treatment: Yes (2) Homicidal ideations Current visit: Yes Status: Acute Plan: Continue hospitalization, Encourage participation in unit milieu, Secure weapons Risks, benefits, side effects, alternatives discussed w/pt: Yes Patient agreeable to treatment: Yes (3) Edema Current visit: Yes Status: Acute Qualifiers: Edema type: localized Qualified Code(s): R60.0 - Localized edema Consult Discharge Plan - Plan Referrals: [facility] [Outside] - 02/24/18 8:45 am (The above appointment is with Dr. Jimenez for primary care and medications. Please bring photo ID and insurance card. ) [facility] [Outside] - 02/19/18 10:00 am (The above appointment is with Jo Ann for mental health counseling. Please bring completed [facility] intake packet that you received at the hospital with you. Please also bring photo ID, insurance card, proof of income and proof of residency. Arrive at 0930 for paperwork. Jo Ann will refer you to see the psychiatric prescriber.) Psychiatry Exam - Constitutional Vitals: Temp Pulse Resp BP Pulse Ox 98.1 F 73 21 143/78 96 02/12/18 08:17 02/12/18 08:17 02/12/18 08:17 02/12/18 08:17 02/08/18 11:28 General appearance: age & developmentally appropriate, well-groomed, well- nourished, obese - Musculoskeletal Gait: normal Station: relaxed Strength & Tone: normal for patient - Psychiatric Patient Orientation: Yes Person, Yes Time, Yes Place Level of alertness: Alert Behavior: calm, agitated, impulsive Psychomotor activity: Normal Eye Contact: Maintains Eye Contact Mood Description: Elevated, Euphoric Affect description: congruent with mood, full range Speech Volume: Normal Speech pattern: normal rate, normal rhythm, normal tone, fluent, spontaneous, pressured, repetetive Language & Vocabulary: consistent with education Thought Process: Linear, Goal Oriented, Evasive Thought Content: No Suicidal ideation, Yes Homicidal ideation, No Overt delusions Perceptual Disturbances: No Auditory hallucinations, No Visual hallucinations Attention Span Ability: Capable of Focused Attention Memory Description: Grossly Intact Patient Reliability: Questionable Historian Fund of knowledge: Yes abstraction ability, Yes aware of current events Intelligence Estimate: Average Judgment: Limited Insight: Minimal
[2018-02-12] MEDS ORDERED: Furosemide 20 MG TABLET PO ONE (15:05)
[2018-02-12] MEDS: Mag Hydrox/Al Hydrox/Simeth 30 ML UDC PO PRN (16:54)
[2018-02-12] MEDS: cloNIDine HCl 0.1 MG TABLET PO SCH (17:21)
[2018-02-12] MEDS ORDERED: Mag Hydrox/Al Hydrox/Simeth 30 ML UDC PO SCH (18:00)
[2018-02-12] MEDS: hydrOXYzine pamoate 25 MG CAPSULE PO SCH (20:40)
[2018-02-12] MEDS: Lithium Carbonate ER 450 MG TABLET.ER PO SCH (20:40)
[2018-02-13] MEDS: Mag Hydrox/Al Hydrox/Simeth 30 ML UDC PO SCH ×4 (01:49→21:44)
[2018-02-13] MEDS: Neosporin OINT 15 GM TUBE TP SCH ×3 (01:49→23:34)
[2018-02-13] MEDS: OLANZapine 10 MG TAB.RAPDIS PO SCH ×2 (01:49→21:42)
[2018-02-13] MEDS: Methocarbamol 500 MG TABLET PO SCH ×3 (01:54→15:16)
[2018-02-13] MEDS: Glycopyrrolate 1 MG TABLET PO SCH ×2 (08:40→21:43)
[2018-02-13] MEDS: Aspirin Enteric Coated 81 MG Tablet PO SCH (08:41)
[2018-02-13] MEDS: Furosemide 20 MG TABLET PO SCH (08:41)
--- NOTE | 2018-02-13 09:55 | Psychiatry Progress Note ---
Date of Encounter: 02/13/18 Time of Encounter: 09:30 Subjective Interval history: iD the patient is a 32-white male. Chief complaint: I still have swelling. History of present illness: The patient has continued with kain. In fact he stated to others that he could influence events in the world. This is a grandiose delusion called megalomania.. The patient previously stated that he owns part of [employer]. Today he says that he will let the law take its course but when asked about the stand your ground and [place] defense he said that he would have his dog go after the person and that then he would be able to shoot him. Patient was redirected that this would not be lawful, under state law. The patient has slept 7 hours he feels the medicine Zyprexa is helpful. He is feet were elevated and he took Lasix yesterday. The patient's Depakote was stopped yesterday and he got 1 dose of lithium last night so far he is tolerating it. He will have labs drawn tomorrow. 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 Review of Systems Psychiatric: Reports: abnormal sleep pattern, change in appetite, irritability Results - Vital Signs Vital Signs: Temp Pulse Resp BP Pulse Ox 98.1 F 96 18 140/86 96 02/12/18 20:10 02/12/18 20:10 02/12/18 20:10 02/12/18 20:10 02/08/18 11:28 Assessment and Plan (1) Bipolar disorder, current episode manic severe with psychotic features Current visit: Yes Status: Acute Plan: Continue hospitalization, Close observation, Monitor sleep, Monitor appetite Risks, benefits, side effects, alternatives discussed w/pt: Yes Patient agreeable to treatment: Yes (2) Homicidal ideations Current visit: Yes Status: Acute Plan: Continue hospitalization, Close observation, Group Therapy Risks, benefits, side effects, alternatives discussed w/pt: Yes Patient agreeable to treatment: Yes (3) Edema Current visit: Yes Status: Acute Plan: Encourage participation in unit milieu, Monitor appetite Risks, benefits , side effects, alternatives discussed w/pt: Yes Patient agreeable to treatment: Yes Qualifiers: Edema type: localized Qualified Code(s): R60.0 - Localized edema Consult Discharge Plan - Plan Referrals: [facility] [Outside] - 02/24/18 8:45 am (The above appointment is with Dr. Jimenez for primary care and medications. Please bring photo ID and insurance card. ) [facility] [Outside] - 02/19/18 10:00 am (The above appointment is with Jo Ann for mental health counseling. Please bring completed [facility] intake packet that you received at the hospital with you. Please also bring photo ID, insurance card, proof of income and proof of residency. Arrive at 0930 for paperwork. Jo Ann will refer you to see the psychiatric prescriber.) Psychiatry Exam - Constitutional Vitals: Temp Pulse Resp BP Pulse Ox 98.1 F 96 18 140/86 96 02/12/18 20:10 02/12/18 20:10 02/12/18 20:10 02/12/18 20:10 02/08/18 11:28 General appearance: age & developmentally appropriate, well-nourished - Musculoskeletal Gait: normal Station: other Strength & Tone: normal for patient - Psychiatric Patient Orientation: Yes Person, Yes Time, Yes Place, Yes Circumstance Level of alertness: Alert Behavior: impulsive, talkative, dramatic Psychomotor activity: Increased Eye Contact: Maintains Eye Contact Mood Description: Euphoric, Expansive Affect description: euphoric Speech Volume: Normal Speech pattern: normal rate Language & Vocabulary: consistent with education Thought Process: Tangential, Flight of Ideas Thought Content: Yes Paranoid delusion, Yes Grandiose delusion, Yes Obsessive thoughts Perceptual Disturbances: Yes Auditory hallucinations Attention Span Ability: Capable of Focused Attention Memory Description: Grossly Intact Patient Reliability: Not Reliable Historian Fund of knowledge: Yes average Intelligence Estimate: Average Judgment: Limited Insight: Minimal
[2018-02-13] MEDS: cloNIDine HCl 0.1 MG TABLET PO SCH (17:48)
[2018-02-13] MEDS: Lithium Carbonate ER 450 MG TABLET.ER PO SCH (21:41)
[2018-02-13] MEDS: Ibuprofen 400 MG TABLET PO PRN (21:46)
[2018-02-13] MEDS: hydrOXYzine pamoate 25 MG CAPSULE PO SCH (21:47)
[2018-02-14] MEDS: Methocarbamol 500 MG TABLET PO SCH ×3 (01:03→15:47)
[2018-02-14] MEDS: Ibuprofen 400 MG TABLET PO PRN ×2 (08:53→16:33)
[2018-02-14] MEDS: Aspirin Enteric Coated 81 MG Tablet PO SCH (08:55)
[2018-02-14] MEDS: Mag Hydrox/Al Hydrox/Simeth 30 ML UDC PO SCH ×3 (08:56→21:05)
[2018-02-14] MEDS: Glycopyrrolate 1 MG TABLET PO SCH ×2 (08:58→21:06)
[2018-02-14] MEDS: Furosemide 20 MG TABLET PO SCH (08:58)
[2018-02-14 09:56] LABS: BUN/Creatinine Ratio 13 (6-26); Blood Urea Nitrogen 10 mg/dL (6-20); Calcium 9.6 mg/dL (8.6-10.3); Carbon Dioxide 25 mEq/L (23-29); Chloride 105 mEq/L (98-107); Glucose 122 mg/dL (70-105); Osmolality,Calculated 288 (280-300); Potassium 4.1 mEq/L (3.5-5.1); Sodium 139 mEq/L (136-145); eGFR For African Americans > 60 (> 60); eGFR For Non-African Americans > 60 (> 60)
[2018-02-14] MEDS: Neosporin OINT 15 GM TUBE TP SCH ×2 (10:04→21:09)
[2018-02-14 10:10] LABS: Thyroid Stimulating Hormone 2.449 mcIU/mL (0.340-5.600)
--- NOTE | 2018-02-14 11:35 | Psychiatry Progress Note ---
Date of Encounter: 02/14/18 Time of Encounter: 11:30 Subjective Interval history: The patient is a 32-year-old white male. Chief complaint: I think I might have a warrant out for my arrest. History of present illness. The patient has continued with a variety of manic symptoms but has improved a little bit. He remains delusional today he talked about going on vacation to the [place] to the the [place] and etc. This is somewhat grandiose however he recognized that he had a warrant for his arrest and could not just leave the country to go on a cruise. He now recognizes that he should not engage in homicidal ideation. But he still has a rather idiosyncratic interpretation of the law and still has plans of getting this person Adán. The patient has tolerated lithium and today still reports swelling but is improved is been moved to another bed. He remains intrusive but is tolerating medications. Review of Systems Psychiatric: Reports: abnormal sleep pattern, change in appetite, homicidal ideation, difficulty concentrating Results - Vital Signs Vital Signs: Temp Pulse Resp BP Pulse Ox 97.8 F 64 16 150/90 96 02/14/18 09:00 02/14/18 09:00 02/14/18 09:00 02/14/18 09:00 02/08/18 11:28 - Drug Levels and Toxicology Drug Levels and Toxicology: Drug Levels and Toxicity 02/14/18 09:16 [place] 0.4 L - Labs Labs: Laboratory Results - last 24 hr 02/14/18 02/14/18 09:16 09:16 Sodium 139 Potassium 4.1 Chloride 105 Carbon Dioxide 25 BUN 10 Creatinine 0.79 Est GFR ( Amer) > 60 Est GFR (Non-Af Amer) > 60 BUN/Creatinine Ratio 13 Glucose 122 H Calculated Osmolality 288 Calcium 9.6 TSH 2.449 [place] 0.4 L Assessment and Plan (1) Bipolar disorder, current episode manic severe with psychotic features Current visit: Yes Status: Acute Risks, benefits, side effects, alternatives discussed w/pt: Yes Patient agreeable to treatment: Yes (2) Homicidal ideations Current visit: Yes Status: Acute Risks, benefits, side effects, alternatives discussed w/pt: Yes Patient agreeable to treatment: Yes (3) Edema Current visit: Yes Status: Acute Risks, benefits, side effects, alternatives discussed w/pt: Yes Patient agreeable to treatment: Yes Qualifiers: Edema type: localized Qualified Code(s): R60.0 - Localized edema Consult Discharge Plan - Plan Referrals: [facility] [Outside] - 02/24/18 8:45 am (The above appointment is with Dr. Jimenez for primary care and medications. Please bring photo ID and insurance card. ) [facility] [Outside] - 02/19/18 10:00 am (The above appointment is with Jo Ann for mental health counseling. Please bring completed [facility] intake packet that you received at the hospital with you. Please also bring photo ID, insurance card, proof of income and proof of residency. Arrive at 0930 for paperwork. Jo Ann will refer you to see the psychiatric prescriber.) Psychiatry Exam - Constitutional Vitals: Temp Pulse Resp BP Pulse Ox 97.8 F 64 16 150/90 96 02/14/18 09:00 02/14/18 09:00 02/14/18 09:00 02/14/18 09:00 02/08/18 11:28 General appearance: age & developmentally appropriate, well-groomed, well- nourished - Musculoskeletal Gait: brisk Station: other Strength & Tone: normal for patient - Psychiatric Patient Orientation: Yes Person, Yes Time, Yes Place Level of alertness: Alert Behavior: impulsive, talkative, dramatic Psychomotor activity: Increased Eye Contact: Maintains Eye Contact Mood Description: Elevated, Euphoric, Expansive Affect description: congruent with mood, euphoric Speech Volume: Normal Speech pattern: normal rate, spontaneous, coherent Language & Vocabulary: consistent with education Thought Process: Linear, Goal Oriented Thought Content: No Suicidal ideation, No Homicidal ideation, No Overt delusions Perceptual Disturbances: No Auditory hallucinations, No Visual hallucinations Attention Span Ability: Capable of Sustained Attention Memory Description: Grossly Intact Patient Reliability: Reliable Historian Fund of knowledge: Yes abstraction ability, Yes aware of current events Intelligence Estimate: Average Judgment: Fair Insight: Partial
[2018-02-14] MEDS: cloNIDine HCl 0.1 MG TABLET PO SCH (17:40)
[2018-02-14] MEDS: OLANZapine 10 MG TAB.RAPDIS PO SCH (21:07)
[2018-02-14] MEDS: Lithium Carbonate ER 450 MG TABLET.ER PO SCH (21:07)
[2018-02-14] MEDS: hydrOXYzine pamoate 25 MG CAPSULE PO SCH (21:07)
[2018-02-15] MEDS: Methocarbamol 500 MG TABLET PO SCH ×3 (00:27→15:58)
[2018-02-15] MEDS: Mag Hydrox/Al Hydrox/Simeth 30 ML UDC PO PRN (00:30)
[2018-02-15] MEDS: Ibuprofen 400 MG TABLET PO PRN ×2 (08:14→21:23)
[2018-02-15] MEDS: Glycopyrrolate 1 MG TABLET PO SCH ×2 (08:14→21:20)
[2018-02-15] MEDS: Aspirin Enteric Coated 81 MG Tablet PO SCH (08:15)
[2018-02-15] MEDS: Mag Hydrox/Al Hydrox/Simeth 30 ML UDC PO SCH ×3 (08:15→21:20)
[2018-02-15] MEDS: Furosemide 20 MG TABLET PO SCH (08:15)
[2018-02-15] MEDS: Neosporin OINT 15 GM TUBE TP SCH ×2 (09:40→22:27)
--- NOTE | 2018-02-15 17:43 | Psychiatry Progress Note ---
Date of Encounter: 02/15/18 Time of Encounter: 13:30 Subjective Interval history: CC: I was having thoughts to harm other people. Pt is a 32 yo,, male, who presents for bipolar Disorder type 1, continues to improve . Pt noted that he feels he is doing much better. Per charting pt has had a reduction in grandiosity and delusions. Pt noted agreed to continue medications and continue to titrate them with labs. Pt denied any side effects to current medications, however nadine some "groggyness after meals." Pt noted he felt safe and comfortable on the unit. Pt was in agreement with current treatment plan. Pt noted that he is doing alright today. Pt noted he slept pretty good last night. Pt noted his appetite is good. Pt rated his depression a 2, on a scale of zero to ten with ten being the worst and zero being none. Pt rate his anxiety a 0, on the same scale. Pt denied any auditory or visiual hallucinations. Pt denied any current thoughts to harm himself or anyone else. No TD noted, AIMS=0 Pt denies any hx of HIV, TBIs, Seizures or Hep C. MSE: Alert and Oriented x4 Appearance: neatly groomed dressed in appropriate civilian attire Behavior: friendly, courteous, polite Speech: Fluent, normal tone, normal rate Mood: depressed Affect: mood congruent Thought content: no HI noted, no SI noted, Questionable delusions noted Psychosis: noted visiual hallucinations. Thought Process: Linear coherent goal directed Judgment: poor. Insight: questionable. Plan 1.Interval hx 2.Continue current medications 3.Review current labs 4.Pt had an opportunity to ask questions and discuss current treatment plan. 5.Supportive therapy was provided 6.Pt encouraged to consider group or individual therapy 7.Pt was in agreement with treatment plan. 8.Pt was educated on the risks benefits and side effects of current medications. Review of Systems Constitutional: Denies: fever, chills, weakness, weight change Eyes: Denies: eye pain, vision change Ears, Nose, Throat: Denies: ear pain, throat pain, dental pain, hearing loss, congestion Cardiovascular: Denies: chest pain, palpitations, dyspnea on exertion Respiratory: Denies: cough, dyspnea, wheezes Gastrointestinal: Denies: abdominal pain, nausea, vomiting, diarrhea, constipation Musculoskeletal: Denies: joint swelling, joint pain Neurological: Denies: headache, weakness, numbness, memory loss Psychiatric: Reports: abnormal sleep pattern, change in appetite, homicidal ideation, difficulty concentrating Results - Vital Signs Vital Signs: Temp Pulse Resp BP Pulse Ox 98.6 F 98 20 144/74 96 02/15/18 08:00 02/15/18 08:00 02/15/18 08:00 02/15/18 08:00 02/08/18 11:28 Assessment and Plan (1) Acute psychosis Current visit: Yes Status: Acute Plan: Continue hospitalization, Close observation, Suicide Precautions per unit protocol, Encourage participation in unit milieu, Group Therapy, Monitor sleep, Monitor appetite Risks, benefits, side effects, alternatives discussed w/pt: Yes Patient agreeable to treatment: Yes (2) Homicidal ideations Current visit: Yes Status: Acute Plan: Continue hospitalization, Close observation, Suicide Precautions per unit protocol, Encourage participation in unit milieu, Group Therapy, Monitor sleep, Monitor appetite Risks, benefits, side effects, alternatives discussed w/pt: Yes Patient agreeable to treatment: Yes (3) Bipolar disorder, current episode manic severe with psychotic features Current visit: Yes Status: Acute Plan: Continue hospitalization, Close observation, Suicide Precautions per unit protocol, Encourage participation in unit milieu, Group Therapy, Monitor sleep, Monitor appetite Risks, benefits, side effects, alternatives discussed w/pt: Yes Patient agreeable to treatment: Yes Consult Discharge Plan - Plan Referrals: [facility] [Outside] - 02/24/18 8:45 am (The above appointment is with Dr. Jimenez for primary care and medications. Please bring photo ID and insurance card. ) [facility] [Outside] - 02/19/18 10:00 am (The above appointment is with Jo Ann for mental health counseling. Please bring completed [facility] intake packet that you received at the hospital with you. Please also bring photo ID, insurance card, proof of income and proof of residency. Arrive at 0930 for paperwork. Jo Ann will refer you to see the psychiatric prescriber.) Psychiatry Exam - Constitutional Vitals: Temp Pulse Resp BP Pulse Ox 98.6 F 98 20 144/74 96 02/15/18 08:00 02/15/18 08:00 02/15/18 08:00 02/15/18 08:00 02/08/18 11:28 General appearance: age & developmentally appropriate, well-groomed, well- nourished - Musculoskeletal Gait: normal Station: relaxed Strength & Tone: normal for patient - Psychiatric Patient Orientation: Yes Person, Yes Time, Yes Place Level of alertness: Alert Behavior: calm, cooperative, restless Psychomotor activity: Normal Eye Contact: Maintains Eye Contact Mood Description: Elevated, Euphoric Affect description: euphoric Speech Volume: Normal Speech pattern: normal rate, normal rhythm, normal tone, fluent, spontaneous Language & Vocabulary: consistent with education Thought Process: Goal Oriented, Loose Associations, Tangential Thought Content: No Suicidal ideation, No Overt delusions, Yes Grandiose delusion Perceptual Disturbances: No Auditory hallucinations, No Visual hallucinations Attention Span Ability: Capable of Focused Attention Memory Description: Grossly Intact Patient Reliability: Reliable Historian Fund of knowledge: Yes abstraction ability, Yes aware of current events Intelligence Estimate: Average Judgment: Poor Insight: Minimal
[2018-02-15] MEDS: cloNIDine HCl 0.1 MG TABLET PO SCH (18:36)
[2018-02-15] MEDS: Lithium Carbonate ER 450 MG TABLET.ER PO SCH (21:21)
[2018-02-15] MEDS: OLANZapine 10 MG TAB.RAPDIS PO SCH (21:22)
[2018-02-15] MEDS: hydrOXYzine pamoate 25 MG CAPSULE PO SCH (21:23)
[2018-02-16] MEDS: Methocarbamol 500 MG TABLET PO SCH ×3 (02:07→16:44)
[2018-02-16] MEDS: Glycopyrrolate 1 MG TABLET PO SCH ×2 (08:29→21:06)
[2018-02-16] MEDS: Furosemide 20 MG TABLET PO SCH (08:30)
[2018-02-16] MEDS: Aspirin Enteric Coated 81 MG Tablet PO SCH (08:30)
[2018-02-16] MEDS: Mag Hydrox/Al Hydrox/Simeth 30 ML UDC PO SCH ×3 (08:32→21:04)
[2018-02-16] MEDS: Mag Hydrox/Al Hydrox/Simeth 30 ML UDC PO PRN ×2 (08:37→14:34)
[2018-02-16] MEDS: Neosporin OINT 15 GM TUBE TP SCH ×2 (10:47→21:06)
--- NOTE | 2018-02-16 12:55 | Psychiatry Progress Note ---
Date of Encounter: 02/16/18 Time of Encounter: 12:30 Subjective Interval history: Patient is seen for follow-up. Case discussed with nursing staff. Staff report patient is less manic, speech is less pressured. He is cooperative and compliant with medication and denies any side effects. His last lithium level was done on February 14 and was supple therapeutic at 0.4. He reports improved sleep, this and anxiety and denied homicidal ideation. Review of Systems Psychiatric: Reports: abnormal sleep pattern, change in appetite, homicidal ideation, difficulty concentrating Results - Vital Signs Vital Signs: Temp Pulse Resp BP Pulse Ox 99.3 F 90 16 130/73 96 02/16/18 09:00 02/16/18 09:00 02/16/18 09:00 02/16/18 09:00 02/08/18 11:28 Consult Discharge Plan - Plan Referrals: [facility] [Outside] - 02/24/18 8:45 am (The above appointment is with Dr. Jimenez for primary care and medications. Please bring photo ID and insurance card. ) [facility] [Outside] - 02/19/18 10:00 am (The above appointment is with Jo Ann for mental health counseling. Please bring completed [facility] intake packet that you received at the hospital with you. Please also bring photo ID, insurance card, proof of income and proof of residency. Arrive at 0930 for paperwork. Jo Ann will refer you to see the psychiatric prescriber.) Psychiatry Exam - Constitutional Vitals: Temp Pulse Resp BP Pulse Ox 99.3 F 90 16 130/73 96 02/16/18 09:00 02/16/18 09:00 02/16/18 09:00 02/16/18 09:00 02/08/18 11:28 General appearance: age & developmentally appropriate, well-groomed, well- nourished, obese - Musculoskeletal Gait: normal Station: relaxed Strength & Tone: normal for patient - Psychiatric Patient Orientation: Yes Person, Yes Time, Yes Place Level of alertness: Alert Behavior: calm, cooperative Psychomotor activity: Normal Eye Contact: Maintains Eye Contact Mood Description: Euthymic/stable, Anxious, Expansive, Labile Affect description: congruent with mood, full range, labile Speech Volume: Normal Speech pattern: normal rate, normal rhythm, normal tone, fluent, spontaneous, excessive Language & Vocabulary: consistent with education Thought Process: Linear, Goal Oriented Thought Content: No Suicidal ideation, No Homicidal ideation, No Overt delusions , Yes Preoccupation, Yes Grandiose delusion Perceptual Disturbances: No Auditory hallucinations, No Visual hallucinations Attention Span Ability: Capable of Focused Attention Memory Description: Grossly Intact Patient Reliability: Reliable Historian Fund of knowledge: Yes abstraction ability, Yes aware of current events Intelligence Estimate: Average Judgment: Limited Insight: Partial
[2018-02-16 15:09] LABS: Alanine Aminotransferase 37 Units/L (7-52); Albumin 4.6 g/dL (3.5-5.7); Albumin/Globulin Ratio 1.4 (1.1-2.2); Alkaline Phosphatase 117 Units/L (34-104); Aspartate Amino Transferase 32 Units/L (13-39); BUN/Creatinine Ratio 14 (6-26); Bilirubin,Total 0.3 mg/dL (0.3-1.0); Blood Urea Nitrogen 14 mg/dL (6-20); Calcium 9.8 mg/dL (8.6-10.3); Carbon Dioxide 30 mEq/L (23-29); Chloride 102 mEq/L (98-107); Globulin 3.2 g/dL (2.4-3.5); Glucose 108 mg/dL (70-105); Osmolality,Calculated 287 (280-300); Sodium 138 mEq/L (136-145); Total Protein 7.8 g/dL (6.4-8.9); eGFR For African Americans > 60 (> 60); eGFR For Non-African Americans > 60 (> 60)
[2018-02-16] MEDS: cloNIDine HCl 0.1 MG TABLET PO SCH (18:06)
[2018-02-16] MEDS: Ibuprofen 400 MG TABLET PO PRN ×2 (18:06→21:06)
[2018-02-16] MEDS: Lithium Carbonate ER 450 MG TABLET.ER PO SCH (21:05)
[2018-02-16] MEDS: hydrOXYzine pamoate 25 MG CAPSULE PO SCH (21:05)
[2018-02-16] MEDS: OLANZapine 10 MG TAB.RAPDIS PO SCH (21:06)
[2018-02-17] MEDS: Methocarbamol 500 MG TABLET PO SCH ×2 (04:09→07:06)
[2018-02-17] MEDS: Mag Hydrox/Al Hydrox/Simeth 30 ML UDC PO SCH (08:49)
[2018-02-17] MEDS: Furosemide 20 MG TABLET PO SCH (08:49)
[2018-02-17] MEDS: Glycopyrrolate 1 MG TABLET PO SCH (08:50)
[2018-02-17] MEDS: Aspirin Enteric Coated 81 MG Tablet PO SCH (08:50)
[2018-02-17] MEDS: Neosporin OINT 15 GM TUBE TP SCH (08:52)
[2018-02-17 09:01] VITALS: BP 142/79
--- NOTE | 2018-02-17 10:12 | Discharge Summary ---
Date of Encounter: 02/17/18 Time of Encounter: 10:08 Diagnosis - Discharge Diagnosis (1) Bipolar disorder, current episode manic severe with psychotic features Status: Acute (2) Homicidal ideations Status: Acute Medications - Discharge Medications Prescriptions: [place] Carbonate ER [Eskalith] 900 mg PO HS #60 tablet.er OLANZapine [Zyprexa Zydis] 15 mg PO HS #30 tab.rapdis Omeprazole [PriLOSEC] 40 mg PO DAILY@0630 #30 capsule. Aspirin [Lo-Dose Aspirin EC] 81 mg PO DAILY 02/08/18 [History] Biotin 10,000 mcg PO DAILY 02/08/18 [History] FLUoxetine HCl [Prozac] 20 mg PO DAILY 02/08/18 [History] Glycopyrrolate [Robinul] 2 mg PO BID 02/08/18 [History] Methocarbamol [Robaxin] 500 mg PO Q8HR 02/08/18 [History] hydrOXYzine HCl [Hydroxyzine HCl] 25 mg PO HS 02/08/18 [History] [place] Carbonate ER [Eskalith] 900 mg PO HS #60 tablet.er 02/17/18 [Rx] OLANZapine [Zyprexa Zydis] 15 mg PO HS #30 tab.rapdis 02/17/18 [Rx] Omeprazole [PriLOSEC] 40 mg PO DAILY@0630 #30 capsule. 02/17/18 [Rx] 3 Allergy/AdvReac Type Severity Reaction Status Date / Time No Known Allergies Allergy Verified 02/08/18 11:24 Results Procedures and tests throughout hospitalization: Completed Lab Orders Category Date Time Status CBC [Complete Blood Count] [HEME] Routine Lab 02/12/18 07:55 Completed Chem 7 [Basic Metabolic Panel] Routine Lab 02/14/18 09:16 Completed Comprehensive Metabolic Panel Routine Lab 02/16/18 13:10 Completed Glucose Routine Lab 02/12/18 07:55 Completed Hepatic Panel Routine Lab 02/12/18 07:55 Completed Hgb A1C Routine Lab 02/12/18 07:55 Completed [place] Routine Lab 02/14/18 09:16 Completed [place] Routine Lab 02/16/18 13:10 Completed TSH [Thyroid Stimulating Hormone] Routine Lab 02/14/18 09:16 Completed Valproate Routine Lab 02/12/18 07:55 Completed Provider Date of admission: 02/08/18 17:08 Primary care physician: PCP NONE Discharging clinician: Gerard Cervantes Psychiatry Exam - Constitutional Vitals: Temp Pulse Resp BP Pulse Ox 98.2 F 88 16 142/79 96 02/17/18 09:00 02/17/18 09:00 02/17/18 09:00 02/17/18 09:00 02/08/18 11:28 General appearance: age & developmentally appropriate, well-groomed, well- nourished, obese - Musculoskeletal Gait: normal Station: relaxed Strength & Tone: normal for patient - Psychiatric Patient Orientation: Yes Person, Yes Time, Yes Place Level of alertness: Alert Behavior: calm, cooperative Psychomotor activity: Normal Eye Contact: Maintains Eye Contact Mood Description: Euthymic/stable Affect description: congruent with mood, full range, euphoric Speech Volume: Normal Speech pattern: normal rate, normal rhythm, normal tone, fluent, spontaneous Language & Vocabulary: consistent with education Thought Process: Linear, Goal Oriented Thought Content: No Suicidal ideation, No Homicidal ideation, No Overt delusions Perceptual Disturbances: No Auditory hallucinations, No Visual hallucinations Attention Span Ability: Capable of Focused Attention Memory Description: Grossly Intact Patient Reliability: Reliable Historian Fund of knowledge: Yes abstraction ability, Yes aware of current events Intelligence Estimate: Average Judgment: Limited Insight: Partial Hospital Course Hospital course: Mr. Kang is a 32 year old male admitted for evaluation treatment of bipolar episodes that is manic with psychosis and homicidal ideation. For details of the admission please see H&P On the unit the patient was described as manic with pressured speech and disorganized and delusional and also he was showing increased psychomotor activity patient did not respond to Depakote and he was started on lithium he was able to tolerate the lithium and started showing improvement he became less manic speech was less pressured and he was cooperative and compliant with medication continued to have some delusions but she denied any homicidal ideation or intent to harm his mother's . He had some gastric discomfort and responded well to omeprazole. Discharge plans were completed by social work and she was a patient and he was future oriented and looking forward to discharge. 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 - Time Spent with Patient Total time spent providing and/or coordinating discharge services: Less than 30 minutes Assessment and Plan - Patient/Caregiver Discharge Instructions Activity: resume usual activities as tolerated Diet: regular diet - Follow up Plan Follow up with: [facility] [Outside] - 02/24/18 8:45 am (The above appointment is with Dr. Jimenez for primary care and medications. Please bring photo ID and insurance card. ) [facility] [Outside] - 02/19/18 10:00 am (The above appointment is with Jo Ann for mental health counseling. Please bring completed [facility] intake packet that you received at the hospital with you. Please also bring photo ID, insurance card, proof of income and proof of residency. Arrive at 0930 for paperwork. Jo Ann will refer you to see the psychiatric prescriber.) Functional capacity at discharge: independent ambulation Overall status at discharge: Stable Disposition: Home, Self-Care Quality - Multiple Antipsychotics Patient discharged on 2 or more antipsychotic medications: No Procedures - Procedures Procedures: Medication Management, Crisis Stabilization, Supportive Therapy, Group Therapy, Psychoeducational Therapy
== END 2018-02-17 12:55 | disposition home or self-care (01) | DRG 753 ==
LOC: EMEROO 11:17 → 1ANU 17:08 → SUATTDRO 17:08 → 1ANU 18:40
PROVIDERS: ADMIT Psychiatry & Neurology Forensic Psychiatry; ATTEND Psychiatry & Neurology Psychiatry